=== PATIENT | male | born 1945 | race Caucasian/White ===

== ENCOUNTER → 2020-05-29 | Outpatient (CLI) | payer MEDICARE, OTHER ==
[~2020-05-29] MED LIST: DILTIAZEM ER120 M1 PO; DITROPAN 5 MG TA5 MG PO; ELIQUIS 2.5 MG2.5 MG PO; ELIQUIS5 MG PO; FIBER PO; HYDROCODON-ACE1 EAC2 PO; INDERAL TAB 1010 MG PO; MULTAQ400 MG PO; OMEPRAZOLE40 MG PO; SOTALOL120 MG PO; VITAMIN B-12250 MCG PO; VITAMIN B12 PO; VITAMIN D3125 MCG PO; VITAMIN D400 UNI2 PO
== END ==
LOC: HEART 5 05-28 09:00
DX: I48.91 Unspecified atrial fibrillation (principal); I25.9 Chronic ischemic heart disease, unspecified; Z01.818 Encounter for other preprocedural examination
CPT/HCPCS: 78452; A9502; J2785

== ENCOUNTER → 2020-06-01 | Outpatient (CLI) | payer MEDICARE, OTHER ==
[2020-06-01 11:30] LABS: HEMOGLOBIN 13.9 gm/dl (14.0-17.5); RED BLOOD COUNT 4.56 M/UL (4.20-5.50)
[2020-06-01 11:48] LABS: BUN/CREATININE RATIO 24 (0-10)
== END ==
LOC: OPSV2 09:50 → EDSTATUS 10:00 → OPSV2 10:00
PROVIDERS: Orthopaedic Surgery
DX: Z01.818 Encounter for other preprocedural examination (principal); M17.11 Unilateral primary osteoarthritis, right knee; I48.91 Unspecified atrial fibrillation
CPT/HCPCS: 71046; 80048; 81001; 85025; 87081; 93005

== ENCOUNTER → 2020-06-11 | Outpatient (CLI) | payer MEDICARE, OTHER ==
[2020-06-11 09:41] LABS: BUN/CREATININE RATIO 18 (0-10)
== END ==
LOC: LAB 08:41
PROVIDERS: Orthopaedic Surgery
DX: Z01.812 Encounter for preprocedural laboratory examination (principal); Z01.83 Encounter for blood typing
CPT/HCPCS: 36415; 80048; 86850; 86900; 86901

== ENCOUNTER 2020-06-12 07:23 | Day surgery (SDC) | payer MEDICARE, OTHER ==
[~2020-06-12] VITALS: Ht 177.8 cm; Wt 86.6 kg
[~2020-06-12 07:23] MED LIST changes: -DILTIAZEM ER120 M1 PO; -ELIQUIS 2.5 MG2.5 MG PO; -HYDROCODON-ACE1 EAC2 PO
[2020-06-12] MEDS ORDERED: DILTIAZEM ER120 M1 PO (13:30)
--- NOTE | 2020-06-12 16:31 | NUR ---
INSTRUCTED PATIENT ON SIGNS AND SYMPTOMS OF SEPSIS, RAPID RESPONSE AND BED OPERATION. VERBALIZED UNDERSTANDING. BRENDA CRENSHAW R.N.
[2020-06-13 04:37] LABS: RED BLOOD COUNT 4.04 M/UL (4.20-5.50); WHITE BLOOD COUNT 14.2 K/UL (4.5-11.0)
[2020-06-13 04:45] LABS: BUN/CREATININE RATIO 23 (0-10)
[2020-06-13] MEDS ORDERED: HYDROCODON-ACE1 EAC2 PO (08:08)
[2020-06-13] MEDS ORDERED: ELIQUIS 2.5 MG2.5 MG PO (09:55)
== END 2020-06-13 13:21 | disposition home or self-care (01) ==
LOC: OR 07:23 → ZOBSOF 07:23 → EDSTATUS 09:15 → M/S 15:04 → ZOBSOF 15:04 → M/S 06-13 13:21 → OR 06-13 13:21
PROVIDERS: Orthopaedic Surgery
DX: M17.11 Unilateral primary osteoarthritis, right knee (principal); G89.18 Other acute postprocedural pain; I10 Essential (primary) hypertension; K21.9 Gastro-esophageal reflux disease without esophagitis; I48.20 Chronic atrial fibrillation, unspecified; Z88.1 Allergy status to other antibiotic agents; Z79.01 Long term (current) use of anticoagulants; Z79.899 Other long term (current) drug therapy
CPT/HCPCS: 0; 36415; 73560; 76000; 80048; 85027; 93005; 97116-GP-CQ; 97161; 97166; C1776; J0171; J0690; J1100; J2001; J2250; J2704; J2795; J7120